=== PATIENT | male | born 1955 | race Caucasian/White ===

== ENCOUNTER 2017-01-30 05:58 | Inpatient (IN) ==
[2017-01-30] MEDS ORDERED: DEXAMETHASONE 4 MG/1 ML VIAL IV ONE (06:00)
[2017-01-30] MEDS ORDERED: LIDOCAINE 1%/EPI INJ 20 ML VIAL ONE (06:46)
[2017-01-30] MEDS: LACTATED RINGERS 1,000 ML IV SCH ×2 (08:39→10:15)
[2017-01-30] MEDS ORDERED: ceFAZolin 1,000 MG VIAL ONE (09:59)
[2017-01-30] MEDS ORDERED: ONDANSETRON 4 MG/2 ML VIAL ONE (11:43)
[2017-01-30] MEDS ORDERED: ACETAMINOPHEN 1,000 MG/100 ML VIAL IV ONE (11:43)
[2017-01-30] MEDS ORDERED: MIDAZOLAM 2 MG/2 ML VIAL ONE (11:43)
[2017-01-30] MEDS ORDERED: fentaNYL 100 MCG/2 ML VIAL ONE (11:43)
[2017-01-30] MEDS ORDERED: PROPOFOL 200 MG/20 ML VIAL IV ONE (11:44)
[2017-01-30] MEDS ORDERED: SUCCINYLCHOLINE 200 MG/10 ML VIAL ONE (11:44)
[2017-01-30] MEDS ORDERED: LACTATED RINGERS 1,000 ML IV ONE (11:45)
[2017-01-30] MEDS ORDERED: SODIUM CHLORIDE 0.9% 500 ML IV ONE (11:45)
[2017-01-30] MEDS ORDERED: PHENYLEPHRINE 50 MG/5 ML VIAL ONE (11:45)
[2017-01-30] MEDS ORDERED: DEXAMETHASONE 20 MG/5 ML VIAL ONE (11:45)
[2017-01-30] MEDS ORDERED: GLYCOPYRROLATE 0.4 MG/2 ML VIAL ONE (11:46)
[2017-01-30] MEDS ORDERED: KETOROLAC 30 MG/1 ML VIAL ONE (11:46)
[2017-01-30] MEDS ORDERED: MINERAL OIL/PETROLATUM OPH OINT 3.5 GM TUBE ONE (11:47)
[2017-01-30] MEDS ORDERED: KETAMINE 500 MG/10 ML VIAL ONE (11:51)
[2017-01-30] MEDS ORDERED: SEVOFLURANE 1 UNIT/15 MINUTE INH ONE (12:18)
[2017-01-30] MEDS ORDERED: ONDANSETRON 4 MG/2 ML VIAL IV PRN (12:48)
[2017-01-30] MEDS ORDERED: LACTATED RINGERS 1,000 ML IV SCH (13:00)
[2017-01-30] MEDS ORDERED: NALOXONE 0.4 MG/ML VIAL IV PRN (13:04)
[2017-01-30] MEDS ORDERED: MEPERIDINE 25 MG/1 ML VIAL ONE (13:14)
[2017-01-30] MEDS: IBUPROFEN 600 MG TABLET PO SCH ×2 (14:58→21:12)
[2017-01-30] MEDS: MORPHINE PCA 30 MG/30 ML SYRINGE IV PRN (15:07)
[2017-01-31] MEDS: LACTATED RINGERS 1,000 ML IV SCH (06:45)
[2017-01-31] MEDS: IBUPROFEN 600 MG TABLET PO SCH (06:45)
[2017-01-31 13:28] VITALS: BP 130/75
[2017-01-31] MEDS: MORPHINE PCA 30 MG/30 ML SYRINGE IV PRN (14:30)
== END 2017-01-31 15:15 | disposition home or self-care (01) | DRG 822 ==
LOC: N.OR 05:58 → N.SDSINP 05:59 → N.CC 12:48
PROVIDERS: ADMIT Otolaryngology; ATTEND Otolaryngology